=== PATIENT | female | born 1955 | race Caucasian/White ===

== ENCOUNTER 2018-10-19 15:29 | Emergency (ER) | payer BC ==
[2018-10-19 15:35] VITALS: RESP 18
--- NOTE | 2018-10-19 16:23 | ED ---
Syncope HPI - General Chief Complaint: Syncope Stated Complaint: syncopal episode Time Seen by Provider: 10/19/18 16:09 Source: patient, family, RN notes reviewed Mode of arrival: wheelchair Limitations: no limitations - History of Present Illness Initial Comments: This is a 63-year-old female with a prior history of syncope in the past who was upstairs in the hospital visiting a relative she had fallen asleep while sitting on a bench later 1T doctor yesterday for a while the next he she knew she was on the floor. She does not recall falling or going a wheelchair. She has complaints are right shoulder pain no head neck or back pain she did apparently fall onto her face per witnesses. She has been only eating cookies and Mountain Dew recently. It is suspected she may have had a hypoglycemic episode with a prior episode. No fevers chills nausea vomiting sweats no other symptoms reported at this time. She also denied any palpitations. MD Complaint: collapsed - Related Data Home Medications Medication Instructions Recorded Confirmed Aspirin 81 mg PO DAILY 05/24/14 10/19/18 Atorvastatin [Lipitor] 80 mg PO HS 05/24/14 10/19/18 Levothyroxine Sodium [Synthroid] 75 mcg PO DAILY 05/24/14 10/19/18 Omeprazole [PriLOSEC] 20 mg PO DAILY PRN 05/24/14 10/19/18 Cholecalciferol [Vitamin D3] 5,000 unit PO DAILY 08/12/15 10/19/18 Cyanocobalamin [Vitamin B-12] 1,000 mcg PO DAILY 08/12/15 10/19/18 Escitalopram [Lexapro] 20 mg PO HS 08/12/15 10/19/18 Famotidine 40 mg PO DAILY 10/19/18 10/19/18 Meloxicam [Mobic] 15 mg PO DAILY PRN 10/19/18 10/19/18 Mirabegron [Myrbetriq] 50 mg PO DAILY 10/19/18 10/19/18 Nitroglycerin Sl Tabs [Nitrostat] 0.4 mg SUBLINGUAL Q5M PRN 10/19/18 10/19/18 [place]-3 Fatty Acids/Fish Oil [Fish 1 cap PO TID 10/19/18 10/19/18 Oil 1,000 mg Softgel] Previous Rx's Medication Instructions Recorded Ibuprofen [Motrin] 600 mg PO Q6HR PRN #20 tab 10/19/18 Allergies Allergy/AdvReac Type Severity Reaction Status Date / Time adhesive Allergy Rash/Hives Verified 10/19/18 16:26 Penicillins Allergy Rash/Hives Verified 10/19/18 16:26 Review of Systems ROS Statement: Those systems with pertinent positive or pertinent negative responses have been documented in the HPI. ROS Other: All systems not noted in ROS Statement are negative. Past Medical History Past Medical History: Chest Pain / Angina, GERD/Reflux, Hyperlipidemia, Osteoarthritis (OA), Sleep Apnea/CPAP/BIPAP, Thyroid Disorder Additional Past Medical History / Comment(s): no cpap used, bladder leakage History of Any Multi-Drug Resistant Organisms: None Reported Past Surgical History: Cholecystectomy, Hysterectomy, Orthopedic Surgery Additional Past Surgical History / Comment(s): left foot surgery, D &C's, left shoulder surgery Past Anesthesia/Blood Transfusion Reactions: Postoperative Nausea & Vomiting (PONV) Past Psychological History: Depression Smoking Status: Current every day smoker Past Alcohol Use History: Rare Past Drug Use History: None Reported - Past Family History Father Family Medical History: Cancer, Coronary Artery Disease (CAD), Hypertension Additional Family Medical History / Comment(s): Prostate CA Mother Family Medical History: Cancer Additional Family Medical History / Comment(s): Kidney CA. General Exam - General Exam Comments Initial Comments: Is a well-developed well-nourished awake alert oriented 3 female she does demonstrate a Renee Coma Scale of 15 Limitations: no limitations General appearance: alert, in no apparent distress Head exam: Present: atraumatic, normocephalic, normal inspection Eye exam: Present: normal appearance, PERRL, EOMI. Absent: scleral icterus, conjunctival injection, periorbital swelling ENT exam: Present: normal exam, mucous membranes moist Neck exam: Present: normal inspection, full ROM, other (No stridor JVD or bruits). Absent: tenderness, meningismus, lymphadenopathy Respiratory exam: Present: normal lung sounds bilaterally. Absent: respiratory distress, wheezes, rales, rhonchi, stridor Cardiovascular Exam: Present: normal rhythm, bradycardia, normal heart sounds. Absent: systolic murmur, diastolic murmur, rubs, gallop, clicks GI/Abdominal exam: Present: soft, normal bowel sounds. Absent: distended, tenderness, guarding, rebound, rigid Extremities exam: Present: normal inspection, normal capillary refill, other (Noted range of motion the right upper extremity no definite tenderness on palpation no evidence of subluxation clinically no clavicular tenderness. Patient does state however when she tries to move her right shoulder she has pain with attempts to.). Absent: full ROM, tenderness, pedal edema, joint swelling, calf tenderness Back exam: Present: normal inspection Neurological exam: Present: alert, oriented X3, CN II-XII intact Psychiatric exam: Present: normal affect, normal mood Skin exam: Present: warm, dry, intact, normal color. Absent: rash Course Vital Signs 10/19/18 10/19/18 10/19/18 15:32 17:27 18:41 Temperature 97.5 F L Pulse Rate 50 L 60 45 L Pulse Rate [ Sitting Electronics Installer] Pulse Rate [ Standing Electronics Installer ] Pulse Rate [ Supine Electronics Installer] Respiratory 18 18 18 Rate Blood Pressure 100/55 144/67 149/76 Blood Pressure [Left Arm Sitting] Blood Pressure [Left Arm Standing] Blood Pressure [Left Arm Supine] O2 Sat by Pulse 97 100 97 Oximetry 10/19/18 19:26 Temperature Pulse Rate Pulse Rate [ 52 L Sitting Electronics Installer] Pulse Rate [ 53 L Standing Electronics Installer ] Pulse Rate [ 47 L Supine Electronics Installer] Respiratory 18 Rate Blood Pressure Blood Pressure 147/71 [Left Arm Sitting] Blood Pressure 133/62 [Left Arm Standing] Blood Pressure 111/48 [Left Arm Supine] O2 Sat by Pulse 97 Oximetry - Reevaluation(s) Reevaluation #1: 10/19/18 18:07 I did discuss the radiological findings with the patient does demonstrate ev idence of a surgical neck fracture right humerus. She initially did not want pain medication she is now requesting some. Reevaluation #2: 10/19/18 19:38 EKG was compared with one dated 04/09/10 showing very similar configuration and rate. EKG Findings - EKG Results: EKG: interpreted by [facility], sinus rhythm (Sinus bradycardia rate of 47. Interval 146 QRS duration 80 QT since QTC 508/449) EKG shows: bradycardia Medical Decision Making - Medical Decision Making She is awake alert oriented 3 without any symptoms at this time patient orthostatics demonstrate some viral depletion. We did discuss patient diet which included a lot of Mountain Dew. She was encouraged to increase her non- caffeinated beverage fluid was suctioned. She will follow-up with orthopedics and return when necessary nostril anti-inflammatories for pain. He presentation is consistent with a vasovagal episode/orthostatic episode - Lab Data Result diagrams: 10/19/18 18:17 10/19/18 18:17 Lab Results 10/19/18 10/19/18 10/19/18 Range/Units 18:17 18:17 18:17 WBC 8.6 (3.8-10.6) k/uL RBC 4.55 (3.80-5.40) m/uL Hgb 14.0 (11.4-16.0) gm/dL Hct 41.2 (34.0-46.0) % MCV 90.6 (80.0-100.0) fL MCH 30.8 (25.0-35.0) pg MCHC 34.0 (31.0-37.0) g/dL RDW 14.5 (11.5-15.5) % Plt Count 262 (150-450) k/uL Neutrophils % 65 % Lymphocytes % 23 % Monocytes % 6 % Eosinophils % 3 % Basophils % 1 % Neutrophils # 5.6 (1.3-7.7) k/uL Lymphocytes # 1.9 (1.0-4.8) k/uL Monocytes # 0.5 (0-1.0) k/uL Eosinophils # 0.3 (0-0.7) k/uL Basophils # 0.1 (0-0.2) k/uL PT 9.7 (9.0-12.0) sec INR 0.9 (<1.2) APTT 22.0 (22.0-30.0) sec Sodium 141 (137-145) mmol/L Potassium 4.1 (3.5-5.1) mmol/L Chloride 107 (98-107) mmol/L Carbon Dioxide 27 (22-30) mmol/L Anion Gap 7 mmol/L BUN 13 (7-17) mg/dL Creatinine 0.69 (0.52-1.04) mg/dL Est GFR (CKD-EPI)AfAm >90 (>60 ml/min/1.73 sqM) Est GFR (CKD-EPI)NonAf >90 (>60 ml/min/1.73 sqM) Glucose 98 (74-99) mg/dL Calcium 9.4 (8.4-10.2) mg/dL Magnesium 2.0 (1.6-2.3) mg/dL Total Bilirubin 0.8 (0.2-1.3) mg/dL AST 25 (14-36) U/L ALT 29 (9-52) U/L Alkaline Phosphatase 150 H (38-126) U/L Creatine Kinase 55 (30-135) U/L Troponin I (0.000-0.034) ng/mL Total Protein 7.2 (6.3-8.2) g/dL Albumin 4.1 (3.5-5.0) g/dL 10/19/18 Range/Units 18:17 WBC (3.8-10.6) k/uL RBC (3.80-5.40) m/uL Hgb (11.4-16.0) gm/dL Hct (34.0-46.0) % MCV (80.0-100.0) fL MCH (25.0-35.0) pg MCHC (31.0-37.0) g/dL RDW (11.5-15.5) % Plt Count (150-450) k/uL Neutrophils % % Lymphocytes % % Monocytes % % Eosinophils % % Basophils % % Neutrophils # (1.3-7.7) k/uL Lymphocytes # (1.0-4.8) k/uL Monocytes # (0-1.0) k/uL Eosinophils # (0-0.7) k/uL Basophils # (0-0.2) k/uL PT (9.0-12.0) sec INR (<1.2) APTT (22.0-30.0) sec Sodium (137-145) mmol/L Potassium (3.5-5.1) mmol/L Chloride (98-107) mmol/L Carbon Dioxide (22-30) mmol/L Anion Gap mmol/L BUN (7-17) mg/dL Creatinine (0.52-1.04) mg/dL Est GFR (CKD-EPI)AfAm (>60 ml/min/1.73 sqM) Est GFR (CKD-EPI)NonAf (>60 ml/min/1.73 sqM) Glucose (74-99) mg/dL Calcium (8.4-10.2) mg/dL Magnesium (1.6-2.3) mg/dL Total Bilirubin (0.2-1.3) mg/dL AST (14-36) U/L ALT (9-52) U/L Alkaline Phosphatase (38-126) U/L Creatine Kinase (30-135) U/L Troponin I <0.012 (0.000-0.034) ng/mL Total Protein (6.3-8.2) g/dL Albumin (3.5-5.0) g/dL Disposition Clinical Impression: Syncope due to orthostatic hypotension, Vasovagal syncope, Closed right humeral fracture, Dehydration Disposition: HOME SELF-CARE Condition: Good Instructions (If sedation given, give patient instructions): Arm Fracture in Adults (ED), Dehydration (ED), Syncope (ED) Prescriptions: Ibuprofen [Motrin] 600 mg PO Q6HR PRN #20 tab PRN Reason: Pain Is patient prescribed a controlled substance at d/c from ED?: No Referrals: Herman Yoon MD [Primary Care Provider] - 1-2 days Quirino Guadalupe DO [Medical Doctor] - 1-2 days
--- NOTE | 2018-10-19 17:20 | XR ---
PROCEDURE: XR shoulder complete RT - 3V DATE AND TIME: 10/19/2018 4:43 PM CLINICAL INDICATION: PHH; Pain after injury TECHNIQUE: Department protocol COMPARISON: None FINDINGS: There is soft tissue swelling and cortical step-off at the surgical neck of the humerus, wi th greater tuberosity fracture suspected. The glenohumeral joint is congruent. The acromioclavicular joint is congruent. IMPRESSION: Suspect nondisplaced fracture, CT can further characterize clinically necessary.
--- NOTE | 2018-10-19 17:22 | XR ---
PROCEDURE: XR humerus RT - 3V DATE AND TIME: 10/19/2018 4:43 PM CLINICAL INDICATION: PHH; Pain TECHNIQUE: Department protocol COMPARISON: None FINDINGS: Imaging was obtained from the shoulder to the elbow. There is soft tissue swelling and cortical step-off at the surgical neck of the humerus, with greater tuberosity fracture suspected. No other evidence of fracture or malalignment. IMPRESSION: Suspect nondisplaced fracture, CT can further characterize clinically necessary.
[2018-10-19] MEDS ORDERED: KETOROLAC 30 MG/ML 1 ML VIAL IVP STA (18:07)
[2018-10-19 18:30] LABS: Basophils # (A) 0.1 k/uL (0-0.2); Basophils % (A) 1 %; Eosinophils # (A) 0.3 k/uL (0-0.7); Eosinophils % (A) 3 %; HCT 41.2 % (34.0-46.0); Lymphocytes # (A) 1.9 k/uL (1.0-4.8); Lymphocytes % (A) 23 %; MCH 30.8 pg (25.0-35.0); MCV 90.6 fL (80.0-100.0); Mean Platelet Volume 8.3; Monocytes # (A) 0.5 k/uL (0-1.0); Monocytes % (A) 6 %; Neutrophils # (A) 5.6 k/uL (1.3-7.7); Neutrophils % (A) 65 %; Platelet Count 262 k/uL (150-450); RBC 4.55 m/uL (3.80-5.40); RDW 14.5 % (11.5-15.5); WBC 8.6 k/uL (3.8-10.6)
[2018-10-19 18:39] LABS: ALT 29 U/L (9-52); AST 25 U/L (14-36); Albumin 4.1 g/dL (3.5-5.0); Alkaline Phosphatase 150 U/L (38-126); Anion Gap 7 mmol/L; Blood Urea Nitrogen 13 mg/dL (7-17); Calcium 9.4 mg/dL (8.4-10.2); Carbon Dioxide 27 mmol/L (22-30); Chloride 107 mmol/L (98-107); Creatine Kinase 55 U/L (30-135); Glucose 98 mg/dL (74-99); Potassium 4.1 mmol/L (3.5-5.1); Sodium 141 mmol/L (137-145); Total Bilirubin 0.8 mg/dL (0.2-1.3); Total Protein 7.2 g/dL (6.3-8.2)
[2018-10-19 18:43] LABS: INR 0.9 (<1.2); Prothrombin Time 9.7 sec (9.0-12.0)
[2018-10-19 19:35] VITALS: BP 111/48; PULSE 47
[2018-10-19 19:50] VITALS: TEMP 98.3
== END 2018-10-19 19:44 | disposition home or self-care (01) ==
LOC: EC 15:29
DX: S42.291A Other displaced fracture of upper end of right humerus, initial encounter for closed fracture (principal); I95.1 Orthostatic hypotension; E86.0 Dehydration; K21.9 Gastro-esophageal reflux disease without esophagitis; E78.5 Hyperlipidemia, unspecified; M19.90 Unspecified osteoarthritis, unspecified site; E07.9 Disorder of thyroid, unspecified; F32.9 Major depressive disorder, single episode, unspecified; F17.200 Nicotine dependence, unspecified, uncomplicated; Z79.82 Long term (current) use of aspirin; Z79.890 Hormone replacement therapy; Z79.899 Other long term (current) drug therapy; Z88.0 Allergy status to penicillin; Z91.048 Other nonmedicinal substance allergy status; W19.XXXA Unspecified fall, initial encounter; Y92.239 Unspecified place in hospital as the place of occurrence of the external cause
CPT/HCPCS: 36415; 93005; 80053; 82550; 83735; 84484; 85025; 85610; 85730; 73030; 73060; 99284; 96374; J1885

== ENCOUNTER 2022-08-13 10:37 | Day surgery (SDC) | payer BC, MEDICARE ==
[2022-08-11 12:38] VITALS: BMI 35.9
[~2022-08-13 10:37] MED LIST: LIDOCAINE 1% (10MG/ML) FOR IV START INTRADERMA PRN
[2022-08-13 12:38] VITALS: RESP 16; TEMP 97
[2022-08-13] MEDS: LACTATED RINGERS 1,000 ML IV SCH ×2 (12:43→13:12)
[2022-08-13] MEDS ORDERED: LIDOCAINE 2% INJ 20 MG/ML (2 ML VIAL) ONE (13:13)
[2022-08-13] MEDS ORDERED: PROPOFOL 10 MG/ML 20 ML VIAL IV ONE (13:13)
--- NOTE | 2022-08-13 13:24 | P.PCN ---
Date of Procedure: 08/13/22 Procedure(s) Performed: BRIEF HISTORY: Patient is a 67-year-old, pleasant, female scheduled for an upper endoscopy as a part of evaluation of persistent history of GERD and nocturnal heartburn for the last several months duration. She is on Prilosec 20 mg daily and still remains symptomatic. PROCEDURE PERFORMED: Esophagogastroduodenoscopy with biopsy. PREOPERATIVE DIAGNOSIS: GERD. IV sedation per anesthesia. PROCEDURE: After informed consent was obtained, the patient was brought into the endoscopy unit. IV sedation was administered by Anesthesia under continuous monitoring. Initially the Olympus GIF-140 video endoscope was inserted into the mouth. Esophagus intubated without any difficulty. It was gradually advanced into the stomach and duodenum and carefully examined. The bulb and the second part of the duodenum appeared normal. The scope at this time was withdrawn to the stomach, adequately insufflated with air, and upon careful examination, mucosa of the antrum, had linear areas of erythema in the antrum which was biopsied. Mucosa of the body, cardia and the fundus appeared normal. The scope was then withdrawn into the esophagus. Moderate size hiatal hernia noted. The GE junction was located at 33 cm from the incisors. The esophagus appeared normal. There were no erosions or ulcerations seen and the patient tolerated the procedure well. IMPRESSION: 1. Moderate size hiatal hernia. 2. No evidence of esophagitis or esophageal stricture 3.. Mild antral gastritis RECOMMENDATIONS: The findings of this examination were discussed with the patient as well as her family. She was advised to follow with the biopsy results. Recommended to change the omeprazole to 20 mg once daily half hour before dinnertime and follow antireflux measures. She still remains symptomatic she can use [id number] Pepcid 20 mg at bedtime as needed...
[2022-08-13 13:50] VITALS: BP 135/74; PULSE 63
== END 2022-08-13 14:15 | disposition home or self-care (01) ==
LOC: ORWHC2ENDO 10:37
PROVIDERS: ATTEND Internal Medicine Gastroenterology
DX: K29.50 Unspecified chronic gastritis without bleeding (principal); K44.9 Diaphragmatic hernia without obstruction or gangrene; K21.9 Gastro-esophageal reflux disease without esophagitis; E78.5 Hyperlipidemia, unspecified; G47.33 Obstructive sleep apnea (adult) (pediatric); F39 Unspecified mood [affective] disorder; Z79.82 Long term (current) use of aspirin; Z79.02 Long term (current) use of antithrombotics/antiplatelets; E07.9 Disorder of thyroid, unspecified; Z79.890 Hormone replacement therapy; Z79.899 Other long term (current) drug therapy
CPT/HCPCS: 88305; 43239; J2704; J2001

== ENCOUNTER → 2023-09-26 | Outpatient (CLI) | payer MEDICARE ==
--- NOTE | 2023-10-03 14:36 | MR ---
EXAMINATION TYPE: MR knee RT wo con DATE OF EXAM: 09/26/2023 COMPARISON: None HISTORY: 68-year-old female M25.561, Rt knee pain TECHNIQUE: Multiplanar, multisequence imaging of the right knee is performed without IV contrast. FINDINGS: The ACL, PCL, MCL, and LCL complex are intact. There is an oblique tear extending within the posterior horn and body of the medial meniscus. Mild irregular cartilage thinning along the weightbearing aspect of the medial compartment. The lateral meniscus is intact. Lateral compartment articular cartilage volume is maintained. Mild superficial cartilage fissuring throughout the patellar articular cartilage. Extensor mechanism is intact. Mild anterior soft tissue swelling. Small knee joint effusion. There is a trace 8mm Ochoa's cyst with a tiny 3 mm loose body seen within. Normal popliteal artery anatomy. Mild generalized muscle atrophy. No suspicious bone marrow replaceme nt. IMPRESSION: 1. Oblique tear involving the body and posterior horn of the medial meniscus. 2. Mild degenerative change in both medial and patellofemoral compartments. 3. Small knee joint effusion and mild anterior soft tissue swelling.
== END | disposition home or self-care (01) ==
LOC: RADMRIMAIN 12:29
PROVIDERS: ATTEND Orthopaedic Surgery
DX: S83.241A Other tear of medial meniscus, current injury, right knee, initial encounter (principal); M25.461 Effusion, right knee

== ENCOUNTER 2024-04-11 18:10 | Emergency (ER) | payer MEDICARE ==
[2024-04-11 18:18] VITALS: RESP 16
--- NOTE | 2024-04-11 19:12 | ED ---
Fall HPI - General Chief Complaint: Fall Stated Complaint: fall-@ [facility] Time Seen by Provider: 04/11/24 19:10 Source: patient, RN notes reviewed Mode of arrival: ambulatory - History of Present Illness Initial Comments: 69-year-old female with left foot injury prior to arrival. Patient states she was pushing a shopping cart at [facility], when she slipped and fell, hitting her left foot on the shopping cart. States she is having pain below the third, fourth, and fifth digits of her left foot. She is able to weight-bear. Denies head injury, loss of consciousness, or other injuries. - Related Data Home Medications Medication Instructions Recorded Confirmed Aspirin 81 mg PO DAILY 05/24/14 08/13/22 Atorvastatin [Lipitor] 80 mg PO HS 05/24/14 08/13/22 Levothyroxine Sodium [Synthroid] 75 mcg PO DAILY 05/24/14 08/13/22 Omeprazole [PriLOSEC] 40 mg PO DAILY 05/24/14 08/13/22 Cholecalciferol [Vitamin D3] 5,000 unit PO DAILY 08/12/15 08/13/22 Nitroglycerin Sl Tabs [Nitrostat] 0.4 mg SUBLINGUAL Q5M PRN 10/19/18 08/13/22 Desvenlafaxine Succinate [Pristiq] 100 mg PO DAILY 04/28/22 08/13/22 buPROPion HCL [buPROPion HCL Xl] 150 mg PO DAILY 04/28/22 08/13/22 Previous Rx's Medication Instructions Recorded Acetaminophen-Codeine 300-30mg 1 tab PO Q4H PRN 3 Days #18 tablet 08/30/22 [Tylenol w/codeine #3] Allergies Allergy/AdvReac Type Severity Reaction Status Date / Time adhesive Allergy Rash/Hives Verified 04/11/24 18:18 Penicillins Allergy Rash/Hives Verified 04/11/24 18:18 Review of Systems ROS Statement: Those systems with pertinent positive or pertinent negative responses have been documented in the HPI. ROS Other: All systems not noted in ROS Statement are negative. Past Medical History Past Medical History: Chest Pain / Angina, GERD/Reflux, Hyperlipidemia, Osteoarthritis (OA), Sleep Apnea/CPAP/BIPAP, Thyroid Disorder Additional Past Medical History / Comment(s): no cpap used, bladder leakage History of Any Multi-Drug Resistant Organisms: None Reported Past Surgical History: Cholecystectomy, Hysterectomy, Orthopedic Surgery Additional Past Surgical History / Comment(s): left foot surgery, D &C's, left shoulder surgery, COLONOSCOPY Past Anesthesia/Blood Transfusion Reactions: Previous Problems w/ Anesthesia, Postoperative Nausea & Vomiting (PONV) Additional Past Anesthesia/Blood Transfusion Reaction / Comment(s): PAST HISTORY OF LOW BLOOD PRESSURE WITH ANESTHESIA Past Psychological History: Anxiety, Depression Smoking Status: Former smoker - Past Family History Father Family Medical History: Cancer, Coronary Artery Disease (CAD), Hypertension Additional Family Medical History / Comment(s): Prostate CA Mother Family Medical History: Cancer Additional Family Medical History / Comment(s): Kidney CA. General Exam - General Exam Comments Initial Comments: Visual Physical Exam Vital signs reviewed General: Well-appearing, nontoxic, no acute distress. Head: Normocephalic, atraumatic Eyes: PERRLA, EOMI ENT: Airway patent Chest: Nonlabored breathing Skin: No visual rash, normal skin tone Neuro: Alert and oriented 3 Musculoskeletal: No gross abnormalities Limitations: no limitations General appearance: alert, in no apparent distress Head exam: Present: atraumatic, normocephalic, normal inspection Left Lower Leg exam: Present: normal inspection, full ROM. Absent: tenderness, swelling Ankle exam: Present: normal inspection, full ROM. Absent: tenderness, swelling Foot/Toe exam: Present: full ROM, tenderness, swelling. Absent: normal inspection (Contusion and edema present over lateral aspect of second, third, and fourth metatarsophalangeal joints), abrasion, laceration, deformity, erythema Neurovascular tendon exam: Present: no vascular compromise. Absent: pulse deficit, abnormal cap refill, sensory deficit Neurological exam: Present: alert, oriented X3 Psychiatric exam: Present: normal affect, normal mood Skin exam: Present: warm, dry, intact, normal color. Absent: rash Course Vital Signs 04/11/24 18:15 Temperature 97.8 F Pulse Rate 91 Respiratory 16 Rate Blood Pressure 111/59 O2 Sat by Pulse 96 Oximetry Procedures - Orthopedic Splinting/Casting Injury #1 Side: left Lower Extremity Injury Location: short leg Lower Extremity Immobilizer: posterior splint Additional Comments: Neurovascularly intact status post procedure Medical Decision Making - Medical Decision Making I completed the quick note portion of this chart signed Macy Vargas PA-C Was pt. sent in by a medical professional or institution (EMETERIO Rendon, FISH HATCHERY MANAGER, urgent care, hospital, or snf...) When possible be specific @ -No Did you speak to anyone other than the patient for history (EMS, parent, family, police, friend...)? What history was obtained from this source @ -No Did you review nursing and triage notes (agree or disagree)? Why? @ -I reviewed and agree with nursing and triage notes Were old charts reviewed (outside hosp., previous admission, EMS record, old EKG, old radiological studies, urgent care reports/EKG's, snf records)? Report findings @ -No old charts were reviewed Differential Diagnosis (chest pain, altered mental status, abdominal pain women, abdominal pain men, vaginal bleeding, weakness, fever, dyspnea, syncope, headache, dizziness, GI bleed, back pain, seizure, CVA, palpatations, mental health, musculoskeletal)? @ -Differential Musculoskeletal Muscular strain, contusion, ligament sprain, fracture, arthritis, septic arthri tis, bursitis, cellulitis, muscle spasm, nerve compression, DVT, arterial occlusion, herpes zoster, electrolyte abnormality, tumor.... This is not meant to be in all inclusive list EKG interpreted by me (3pts min.). @ -None X-rays interpreted by me (1pt min.). @ -X-ray left foot reveals mildly displaced fractures involving distal second, third, and fourth metatarsals CT interpreted by me (1pt min.). @ -None done U/S interpreted by me (1pt. min.). @ -None done What testing was considered but not performed or refused? (CT, X-rays, U/S, labs)? Why? @ -None What meds were considered but not given or refused? Why? @ -Patient declines pain medication Did you discuss the management of the patient with other professionals (professionals i.e. EMETERIO Rendon, FISH HATCHERY MANAGER, lab, RT, psych nurse, social media intern, regional facilities specialist, teacher, national service officer, piano case and bench assembler)? Give summary @ -No Was smoking cessation discussed for >3mins.? @ -No Was critical care preformed (if so, how long)? @ -No Were there social determinants of health that impacted care today? How? (Homelessness, low income, unemployed, alcoholism, drug addiction, transportation, low edu. Level, literacy, decrease access to med. care, snf, rehab)? @ -No Was there de-escalation of care discussed even if they declined (Discuss DNR or withdrawal of care, Hospice)? DNR status @ -No What co-morbidities impacted this encounter? (DM, HTN, Smoking, COPD, CAD, Ca ncer, CVA, ARF, Chemo, Hep., AIDS, mental health diagnosis, sleep apnea, morbid obesity)? @ -None Was patient admitted / discharged? Hospital course, mention meds given and route, prescriptions, significant lab abnormalities, going to OR and other pertinent info. @ -Patient was discharged. This is a 69-year-old female presenting with left foot injury prior to arrival. Neurovascularly intact. X-ray reveals mildly displaced fracture involving distal second, third, and fourth metatarsals. Findings discussed with patient. Posterior short leg splint applied. Supportive care discussed as well as return precautions and patient is agreeable to plan. Advised patient to follow-up with orthopedics. Case was discussed with my ED attending Dr. Li. Patient discharged in stable condition. Undiagnosed new problem with uncertain prognosis? @ -No Drug Therapy requiring intensive monitoring for toxicity (Heparin, Nitro, Insulin, Cardizem)? @ -No Were any procedures done? @ -Posterior short leg splint applied Diagnosis/symptom? @ -Multiple fractures of left foot Acute, or Chronic, or Acute on Chronic? @ -Acute Uncomplicated (without systemic symptoms) or Complicated (systemic symptoms)? @ -Uncomplicated Side effects of treatment? @ -No Exacerbation, Progression, or Severe Exacerbation? @ -No Poses a threat to life or bodily function? How? (Chest pain, [place], [place], pneumonia, PE, COPD, DKA, ARF, appy, cholecystitis, CVA, Diverticulitis, Homicidal, Suicidal, threat to staff... and all critical care pts) @ -No Disposition Clinical Impression: Multiple fractures of left foot Disposition: HOME SELF-CARE Condition: Stable Instructions (If sedation given, give patient instructions): Foot Fracture in Adults (ED) Additional Instructions: Keep splint dry. Elevate left foot. Follow-up with orthopedics as discussed. Please return to the Emergency Department if symptoms worsen or any other concerns. Is patient prescribed a controlled substance at d/c from ED?: No Referrals: Herman Yoon MD [Primary Care Provider] - 1-2 days Jose Mccormick DO [Doctor of Osteopathic Medicine] - 1-2 days Time of Disposition: 21:42
--- NOTE | 2024-04-11 20:34 | XR ---
EXAMINATION TYPE: XR foot complete LT DATE OF EXAM: 04/11/2024 8:18 PM CLINICAL INDICATION:Female, 69 years old with history of Left foot injury; H COMPARISON: None TECHNIQUE: The left foot was examined in the AP, oblique, and lateral projections. FINDINGS: Mildly displaced fractures are seen involving the distal metadiaphysis of the second-fourth metatarsa ls. There is subtle angulation identified of the fractures. Mild soft tissue edema seen overlying th e dorsum of the foot. Joints are preserved. IMPRESSION: Mildly displaced fractures involving the distal second, third, and fourth metatarsals. [facility], , 04/11/2024 8:32 PM
[2024-04-11 22:13] VITALS: BP 115/63; PULSE 84; TEMP 97.9
== END 2024-04-11 22:37 | disposition home or self-care (01) ==
LOC: EC 18:10
CPT/HCPCS: 29515; 99283

== ENCOUNTER → 2024-06-25 | Outpatient (CLI) | payer MEDICARE ==
[2024-06-25 14:04] VITALS: BP 141/64; PULSE 72; RESP 16; TEMP 97.6
[2024-06-25] MEDS: DENOSUMAB 60 MG/ML 1 ML SYRINGE SQ ONE (14:11)
== END ==
LOC: PROCWHC3 13:40
PROVIDERS: ATTEND Family Medicine
DX: M81.0 Age-related osteoporosis without current pathological fracture (principal)
CPT/HCPCS: 96372; J0897

== ENCOUNTER → 2025-01-11 | Outpatient (CLI) | payer MEDICARE ==
[~2025-01-11] MED LIST changes: +DENOSUMAB 60 MG/ML 1 ML SYRINGE SQ NR; -LIDOCAINE 1% (10MG/ML) FOR IV START INTRADERMA PRN
[2025-01-11] MEDS: DENOSUMAB 60 MG/ML 1 ML SYRINGE SQ NR (12:00)
[2025-01-11 12:09] VITALS: BP 176/81; PULSE 65; RESP 16; TEMP 98.7
== END ==
LOC: PROCWHC3 11:38
PROVIDERS: ATTEND Family Medicine
DX: M81.0 Age-related osteoporosis without current pathological fracture (principal)
CPT/HCPCS: 96372; J0897